=== PATIENT | male | born 2000 | race Two or more races ===

== ENCOUNTER 2021-02-23 11:37 | Emergency (ER) | payer OTHER ==
[~2021-02-23] VITALS: Ht 167.6 cm; Wt 72.6 kg
--- NOTE | 2021-02-23 11:42 | NUR ---
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 INITIALLY THE PATIENT DESCRIBED THE PAIN NON RADIATING, HOWEVER, LATER HE STARTED THAT THE PAIN RADIATES TO LEFT ARM. RATES PAIN 7/10. THE PATIENT IS ATTACHED TO THE MONITOR. IN ROOM AIR AND DENIES PAIN. RESPIRATION REGULAR AND UNLABORED. WILL CONTINUE TO MONITOR THE THE PATIENT.
--- NOTE | 2021-02-23 12:00 | NUR ---
DR BECKETT AT FOR EVAL.
[2021-02-23] MEDS ORDERED: LORA-259 PO (12:04)
--- NOTE | 2021-02-23 12:10 | NUR ---
Patient discharged to home in stable condition. Written and verbal after care instructions given. Patient verbalizes understanding of instruction.
[2021-02-23 12:11] VITALS: BP 116/63
== END 2021-02-23 12:11 | disposition home or self-care (01) ==
LOC: ER 11:46
DX: R07.89 Other chest pain (principal); Z79.899 Other long term (current) drug therapy